=== PATIENT | female | born 1960 | race Caucasian/White ===

== ENCOUNTER 2024-05-08 10:10 | Emergency (ER) | payer SELFPAY ==
[2024-05-08 10:17] VITALS: BP 180/96
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
[2024-05-08] MEDS: TYLENOL 1000 MG PO (11:12)
[2024-05-08 11:44] VITALS: BP 152/82
== END 2024-05-08 11:45 | disposition home or self-care (01) ==
LOC: EMR 10:10
PROVIDERS: EMERGENCY PHYSICIAN Emergency Medicine; FAMILY PHYSICIAN Family Medicine
DX: S99.929A Unspecified injury of unspecified foot, initial encounter (principal); S80.11XA Contusion of right lower leg, initial encounter; S20.01XA Contusion of right breast, initial encounter; V49.9XXA Car occupant (driver) (passenger) injured in unspecified traffic accident, initial encounter; Y92.410 Unspecified street and highway as the place of occurrence of the external cause; I10 Essential (primary) hypertension; E78.00 Pure hypercholesterolemia, unspecified; F17.200 Nicotine dependence, unspecified, uncomplicated
CPT/HCPCS: 99283; 73630